=== PATIENT | male | born 1965 | race Caucasian/White ===

== ENCOUNTER 2018-03-29 08:01 | Day surgery (SDC) | payer BC ==
[~2018-03-29 08:01] MED LIST: ACETAMINOPHEN 1,000 MG/100 ML BTL IV ONE; CEFAZOLIN 2 Gram 2 GM/50 ML BAG IVPB ONE
[2018-03-29] MEDS ORDERED: PROPOFOL 10 MG/ML VIAL IV ONE (08:02)
[2018-03-29] MEDS ORDERED: LIDOCAINE 2% MDV (20MG/ML) 20ML VIAL IV ONE (08:02)
[2018-03-29] MEDS ORDERED: BUPIVACAINE 0.5% (5MG/ML) PF 30ML VIAL IVP ONE (08:02)
[2018-03-29] MEDS ORDERED: KETOROLAC 30 MG/ML VIAL IVP ONE (08:02)
[2018-03-29] MEDS ORDERED: GLYCOPYRROLATE 0.2 MG/ML ML IV ONE (08:02)
[2018-03-29] MEDS ORDERED: ALFENTANIL HCL 500 MCG/1ML, 2ML AMP IV ONE (08:02)
[2018-03-29] MEDS ORDERED: HYDROCODONE/APAP 7.5/325MG TABLET PO ONE (08:02)
[2018-03-29] MEDS ORDERED: KETAMINE HCL 100MG/1ML VIAL INJ ONE (08:02)
--- NOTE | 2018-03-31 21:09 | Operative Note ---
DATE OF SURGERY: 03/29/2018 PREOPERATIVE DIAGNOSIS: DISPLACED ANGULATED PROXIMAL PHALANX OF LEFT FIFTH FINGER. POSTOPERATIVE DIAGNOSIS: DISPLACED ANGULATED PROXIMAL PHALANX OF LEFT FIFTH FINGER. PROCEDURE: CLOSED, POSSIBLE OPEN REDUCTION AND PERCUTANEOUS PINNING OF FINGER. SURGEON: CALLI MONTGOMERY M.D. ANESTHESIA: LOCAL SEDATION. COMPONENTS: TWO 0.054 PERCUTANEOUS PINS. 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 He sustained a proximal phalanx left fifth digit fracture significantly angulated about 60 degrees when I saw him in the office. He was already about 10 days out at the time and I recommended closed reduction, possible open reduction and percutaneous pinning. I explained the risks and benefits thoroughly in detail for the diagnosis and procedures including but not limited to infection, nerve injury, vessel injury, persistent pain, stiffness, numbness and tingling in his finger, and need for further procedures and all of his questions were answered. Rehab and healing course were outlined and he agreed to proceed. PROCEDURE: The patient brought to the O.R. and placed in the supine position with an arm table prior to surgery. Sedation was given and his left upper extremity and hand were prepped and draped in sterile fashion. The left hand was prepped again with ChloraPrep after it was draped and intraoperative time- out was performed. Next, we brought in the C-arm and identified the fracture. It was somewhat stiff and had started to heal, as expected. He is already two weeks out from injury. There remained a small limited open incision about 0.5 cm over the fracture site dorsomedially. We placed a [place] elevator in the fracture site and elevated it and freed the fracture up disengaging it. Then with flexion and holding pressure on the volar portion of the proximal fragment, we reduced the fracture into good anatomic alignment. We then drilled two 0.054 K-wires joseph- cross from distal to proximal anchoring into the proximal metaphyseal smaller fragment coming out just in the radial and ulnar aspects of the metacarpal head. We took images in AP, lateral, and oblique showing anatomic reduction. We cut the pins and placed pin caps over them and released the pin sites. We irrigated. Injected more 0.5% Marcaine without Epinephrine and 1% Lidocaine without Epinephrine around the site on the finger and we previously did a digital block there. We closed the small wound with #3-0 nylon sutures and placed sterile dressing and ulnar gutter splint. He tolerated the procedure well. No intraoperative complications. All sponge, needle, and blade counts correct. Recovery room stable, neurovascularly intact. He will be discharged as an outpatient and follow-up in two weeks. He is to leave the splint on at all times. At the construction site, he is not to use the hand or fingers or arm at all to do any lifting or anything else, as it could jeopardize his reduction and repair and ruin the surgery. cc: Dr. Farideh Mustafa JOB NUMBER: [id number] MTDD
== END 2018-03-29 12:56 | disposition home or self-care (01) ==
LOC: SUR 08:01
PROVIDERS: ATTEND Orthopaedic Surgery
DX: S62.617A Displaced fracture of proximal phalanx of left little finger, initial encounter for closed fracture (principal); I10 Essential (primary) hypertension; K21.9 Gastro-esophageal reflux disease without esophagitis; F17.210 Nicotine dependence, cigarettes, uncomplicated
CPT/HCPCS: 26727; 01830; 76000; J1885; J0690